=== PATIENT | male | born 1955 | race Caucasian/White ===

== ENCOUNTER 2020-05-13 09:43 | Outpatient (CLI) | payer BC ==
--- NOTE | 2020-05-13 10:16 | RAD ---
PA AND LATERAL VIEWS CHESTS: Date: 05/13/2020 HISTORY: Acute bronchitis. COMPARISON: 10/29/2019. FINDINGS: An electronic generator device is seen overlying the left hemithorax with leads extending into the le ft neck. The heart size is normal. The aorta is tortuous. The lungs are well expanded without lobar c onsolidation, pneumothoraces, or pleural effusions. IMPRESSION: No acute process. POS: SOO
== END 2020-05-13 09:44 | disposition home or self-care (01) ==
LOC: BICRAD 09:43
PROVIDERS: ATTEND Family Medicine
DX: J20.9 Acute bronchitis, unspecified (principal)
CPT/HCPCS: 36415; 71046; 80053; 80061; 85025

== ENCOUNTER 2020-05-17 09:41 | Outpatient (CLI) | payer BC ==
--- NOTE | 2020-05-17 22:23 | EKG ---
Test Reason : Blood Pressure : / mmHG Vent. Rate : 069 BPM Atrial Rate : 069 BPM P-R Int : 200 ms QRS Dur : 094 ms QT Int : 396 ms P-R-T Axes : 008 027 024 degrees QTc Int : 424 ms Normal sinus rhythm Normal ECG No previous ECGs available Confirmed by Cassia FOWLER ([id number]) on 05/17/2020 10:23:43 PM Referred By: SUDHA Confirmed By:Cassia FOWLER
== END 2020-05-17 09:42 | disposition home or self-care (01) ==
LOC: EKG 09:41
PROVIDERS: ATTEND Family Medicine
DX: R07.9 Chest pain, unspecified (principal)
CPT/HCPCS: 93005; 93010

== ENCOUNTER 2024-06-10 12:14 | Outpatient (CLI) | payer MEDICARE | END 2024-06-10 12:15 | disposition home or self-care (01) | LOC: RAD 12:14 | PROVIDERS: ATTEND Family Medicine | DX: G20.A1 Parkinson's disease without dyskinesia, without mention of fluctuations (principal); R13.10 Dysphagia, unspecified | CPT/HCPCS: 74230 ==